=== PATIENT | male | born 1970 | race Caucasian/White ===

== ENCOUNTER → 2019-05-02 | Outpatient (CLI) | payer OTHER ==
[~2019-05-02] MED LIST: IBUP200T44 PO
--- NOTE | 2019-05-02 15:42 | RAD ---
Ultrasound of the neck without comparison for mass in the right submandibular area. Technique an findings: Real-time grayscale and color Doppler evaluation of the soft tissues of the neck on the right are performed, directed towards the area of interest. There is a heterogeneous but primarily hypoechoic circumscribed solid mass in the right submandibular region measuring 3.6 x 3.2 x 1.8 cm, with no significant interval flow. This mass is suspicious for malignancy. IMPRESSION: 1. 3.6 cm suspicious right submandibular soft tissue mass. Further evaluation with contrast-enhanced MRI of the soft tissues of the neck and ultrasound-guided biopsy should be considered. Electronically signed by: Gallito Altamirano MD (05/02/2019 3:40 PM) [id number]
== END | disposition home or self-care (01) ==
LOC: US 09:59
PROVIDERS: ATTEND Family Medicine
DX: R22.1 Localized swelling, mass and lump, neck (principal)
CPT/HCPCS: 76536

== ENCOUNTER 2019-11-02 20:28 | Emergency (ER) | payer OTHER ==
[~2019-11-02] VITALS: Ht 180.3 cm; Wt 82.7 kg
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
[2019-11-02] MEDS ORDERED: cefTRIAXone IM 1 GM VIAL IM ONE (20:45)
[2019-11-02] MEDS ORDERED: DIPH,PERTUSS(ACELL),TET VAC/PF 0.5 ML SYRINGE. VAX IM ONE (20:45)
[2019-11-02 20:50] VITALS: BP 112/72
[2019-11-02] MEDS ORDERED: AMOX1TAB61 PO (20:53)
[2019-11-02] MEDS ORDERED: MUPIROCIN 2% TOPICAL OINTMENT 22GM TUBE. TP SCH (21:00)
== END 2019-11-02 21:18 | disposition home or self-care (01) ==
LOC: ER 20:28
DX: S80.871A Other superficial bite, right lower leg, initial encounter (principal); W54.0XXA Bitten by dog, initial encounter; Y93.55 Activity, bike riding; Y92.89 Other specified places as the place of occurrence of the external cause; Y99.8 Other external cause status
CPT/HCPCS: 90471; 90715; 96372; 99284; J0696